=== PATIENT | female | born 1960 | race Caucasian/White ===

== ENCOUNTER 2019-09-13 09:32 | Emergency (ER) | payer OTHER ==
[2019-09-13] MEDS ORDERED: Metoclopramide 10 MG/2 ML SDV IVPUSH ONE (10:04)
[2019-09-13 11:02] LABS: BLOOD UREA NITROGEN,BUN 24 mg/dL (7.0-18.0); CARBON DIOXIDE,CO2 24.8 mmol/L (21.0-32.0); CHLORIDE,CL 101 mmol/L (98-107); GLUCOSE RANDOM 187 mg/dL (74-106); POTASSIUM,K 5.3 mmol/L (3.5-5.1); SODIUM,NA 138 mmol/L (136-145)
--- NOTE | 2019-09-13 11:35 | EDM.PDOC ---
[facility] GENERAL MEDICAL PROBLEM - General Chief Complaint: Diabetic Complaint Stated Complaint: DIZZY,BLOOD SUGAR Time Seen by Provider: 09/13/19 11:34 Source of Information: Reports: Patient History Limitations: Reports: No Limitations - History of Present Illness INITIAL COMMENTS - FREE TEXT/NARRATIVE: Patient is a 59-year-old female with a past medical history of diabetes presenting with a chief complaint of feeling dizzy. Patient states the symptoms started last night she did not have any lightheadedness or passed out. Patient states these symptoms persist today and she feels like her whole body is like a wet noodle. Patient denies any focal weakness, chest pain, shortness of breath, nausea, vomiting. Patient has no recent illnesses. Patient states her sugar was abnormally low last night but seems to be improved today. Patient has no headaches that are associated with these. Certain body positions do not improve the symptoms. Patient does not take any medications for the symptoms. In addition to that documented in the HPI above, the additional ROS was obtained : Constitutional: Denies fevers or chills Eyes: Denies vision changes ENMT: Denies sore throat CV: Denies chest pain Resp: Denies SOB GI: Denies vomiting or diarrhea : Denies painful urination MSK: Denies recent trauma Skin: Denies new rashes Neuro: Denies new numbness or tingling or weakness Endocrine: Denies unexpected weight loss Heme: Denies bleeding disorders I have reviewed the triage vital signs Const: Well nourished, well developed, appears stated age Eyes: PERRL, no conjunctival injection HENT: NCAT, Neck supple without meningismus CV: RRR, Warm, well-perfused extremities RESP: CTAB, Unlabored respiratory effort GI: soft, non-tender, non-distended, no masses MSK: No gross deformities appreciated Skin: Warm, dry. No rashes Neuro: Alert, human resources supervisor II-XII grossly intact. Sensation and motor function of extremities grossly intact. Walks with normal gait Psych: Appropriate mood and affect Assessment and plan: Patient 59-year-old female presenting with a chief complaint of feeling dizzy. Patient has nondescript symptoms with no evidence of acute coronary syndrome, pulmonary embolism, acute stroke. Patient's labs were within normal limits although her BUN was slightly elevated. Patient symptoms improved after administration of Reglan. Although the etiology of her dizziness is unclear, I do not believe is related to acute life-threatening illness and that she can be discharged home with . Patient given strict return precautions. All questions addressed and answered. Patient agrees with plan. Headache Pain Score (Numeric/FACES): 8 - Related Data Allergies Allergy/AdvReac Type Severity Reaction Status Date / Time iodine Allergy Anaphylactic Verified 09/13/19 09:51 Shock shellfish derived Allergy Anaphylactic Verified 09/13/19 09:51 Shock Home Meds: Home Meds Lisinopril [Zestril] 40 mg PO DAILY 09/13/19 [History] Omeprazole 40 mg PO DAILY 09/13/19 [History] atorvaSTATin [Lipitor] 10 mg PO DAILY 09/13/19 [History] glipiZIDE [Glucotrol] 5 mg PO BID 09/13/19 [History] metFORMIN [Glucophage XR] 1,000 mg PO BID 09/13/19 [History] Past Medical History Endocrine/Metabolic History: Reports: Diabetes, Type II - Infectious Disease History Infectious Disease History: Reports: Chicken Pox, Mumps - Past Surgical History GI Surgical History: Reports: Appendectomy Female Surgical History: Reports: Tubal Ligation Social & Family History - Family History Family Medical History: Noncontributory - Tobacco Use Smoking Status *Q: Former Smoker Used Tobacco, but Quit: Yes Month/Year Tobacco Last Used: 2014 - Caffeine Use Caffeine Use: Reports: Coffee - Recreational Drug Use Recreational Drug Use: No ED ROS GENERAL - Review of Systems Review Of Systems: See Below ED EXAM GENERAL NO PERIP PULSE - Physical Exam Exam: See Below Course - Vital Signs Last Recorded V/S: Last Vital Signs Temp 36.4 C 09/13/19 09:53 Pulse 90 09/13/19 11:45 Resp 18 09/13/19 11:45 BP 172/107 H 09/13/19 09:53 Pulse Ox 97 09/13/19 11:45 - Orders/Labs/Meds Orders: Active Orders 24 hr Category Date Time Status EKG Documentation Completion [RC] STAT Care 09/13/19 10:04 Active Labs: Laboratory Tests 09/13/19 09/13/19 09/13/19 Range/Units 09:47 10:18 10:18 WBC 10.15 (4.0-11.0) K/uL RBC 4.28 L (4.30-5.90) M/uL Hgb 12.8 (12.0-16.0) g/dL Hct 38.7 (36.0-46.0) % MCV 90.4 (80.0-98.0) fL MCH 29.9 (27.0-32.0) pg MCHC 33.1 (31.0-37.0) g/dL RDW Std Deviation 45.9 (28.0-62.0) fl RDW Coeff of Vikash 14 (11.0-15.0) % Plt Count 255 (150-400) K/uL MPV 11.80 (7.40-12.00) fL Neut % (Auto) 69.6 (48.0-80.0) % Lymph % (Auto) 23.1 (16.0-40.0) % [place] % (Auto) 5.2 (0.0-15.0) % Eos % (Auto) 1.7 (0.0-7.0) % Baso % (Auto) 0.4 (0.0-1.5) % Neut # (Auto) 7.1 H (1.4-5.7) K/uL Lymph # (Auto) 2.3 (0.6-2.4) K/uL [place] # (Auto) 0.5 (0.0-0.8) K/uL Eos # (Auto) 0.2 (0.0-0.7) K/uL Baso # (Auto) 0.0 (0.0-0.1) K/uL Nucleated RBC % 0.0 /100WBC Nucleated RBCs # 0 K/uL Sodium 138 (136-145) mmol/L Potassium 5.3 H (3.5-5.1) mmol/L Chloride 101 (98-107) mmol/L Carbon Dioxide 24.8 (21.0-32.0) mmol/L BUN 24 H (7.0-18.0) mg/dL Creatinine 0.9 (0.6-1.0) mg/dL Est Cr Clr Drug Dosing 49.53 mL/min Estimated GFR (MDRD) > 60.0 ml/min Glucose 187 H (74-106) mg/dL POC Glucose 190 H (60-110) mg/dL Calcium 10.9 H (8.5-10.1) mg/dL Total Bilirubin 0.3 (0.2-1.0) mg/dL AST 49 H (15-37) IU/L ALT 77 H (14-63) IU/L Alkaline Phosphatase 162 H (46-116) U/L Troponin I < 0.050 (0.000-0.056) ng/mL Total Protein 8.3 H (6.4-8.2) g/dL Albumin 4.3 (3.4-5.0) g/dL Globulin 4.0 (2.6-4.0) g/dL Albumin/Globulin Ratio 1.1 (0.9-1.6) Meds: Medications Discontinued Medications Generic Name Dose Route Start Last Admin Trade Name Freq PRN Reason Stop Dose Admin Metoclopramide HCl 10 mg 09/13/19 10:04 09/13/19 10:19 Reglan IVPUSH 09/13/19 10:05 10 mg ONETIME ONE Administration Departure - Departure Time of Disposition: 11:34 Disposition: Home, Self-Care 01 Clinical Impression: Diabetes - Discharge Information Instructions: Type 2 Diabetes Mellitus, Self Care, Adult Referrals: PCP,None [Primary Care Provider] - Forms: ED Department Discharge Additional Instructions: The following information is given to patients seen in the emergency department who are being discharged to home. This information is to outline your options for follow-up care. We provide all patients seen in our emergency department with a follow-up referral. The need for follow-up, as well as the timing and circumstances, are variable depending upon the specifics of your emergency department visit. If you don't have a primary care physician on staff, we will provide you with a referral. We always advise you to contact your personal physician following an emergency department visit to inform them of the circumstance of the visit and for follow-up with them and/or the need for any referrals to a consulting specialist. The emergency department will also refer you to a specialist when appropriate. This referral assures that you have the opportunity for follow-up care with a specialist. All of these measure are taken in an effort to provide you with optimal care, which includes your follow-up. Under all circumstances we always encourage you to contact your private physician who remains a resource for coordinating your care. When calling for follow-up care, please make the office aware that this follow-up is from your recent emergency room visit. If for any reason you are refused follow-up, please contact the [facility] Emergency Department at and asked to speak to the emergency department charge nurse. Sepsis Event Note - Evaluation Sepsis Screening Result: No Definite Risk - Focused Exam Vital Signs: Vital Signs Temp Pulse Resp BP Pulse Ox 09/13/19 11:45 90 18 97 09/13/19 09:53 36.4 C 91 17 172/107 H 95 Date Exam was Performed: 09/13/19 Time Exam was Performed: 17:30 - My Orders Last 24 Hours: My Active Orders 09/13/19 10:04 EKG Documentation Completion [RC] STAT - Assessment/Plan Last 24 Hours: My Active Orders 09/13/19 10:04 EKG Documentation Completion [RC] STAT
== END 2019-09-13 11:50 | disposition home or self-care (01) ==
LOC: MW.ED 09:32
DX: E11.9 Type 2 diabetes mellitus without complications (principal); Z87.891 Personal history of nicotine dependence; Z91.013 Allergy to seafood; Z91.048 Other nonmedicinal substance allergy status; Z79.899 Other long term (current) drug therapy; Z79.84 Long term (current) use of oral hypoglycemic drugs
CPT/HCPCS: 36415; 80053; 82962; 84484; 85025; 93005; 96374; 99284; J2765

== ENCOUNTER 2023-01-23 14:35 | Emergency (ER) | payer OTHER ==
[2023-01-23] MEDS ORDERED: Sodium Chloride 0.9% 2.5 ML Syringe FLUSH PRN (14:57)
[2023-01-23] MEDS ORDERED: Sodium Chloride 0.9% 10 ML Syringe FLUSH PRN (14:57)
[2023-01-23] MEDS ORDERED: Sodium Chloride 0.9% 20 ML SDV IV PRN (14:57)
[2023-01-23 15:17] LABS: BASOPHILS PERCENT AUTO 0.4 % (0.0-1.5); EOSINOPHILS ABSOLUTE AUTO 0.1 K/uL (0.0-0.7); EOSINOPHILS PERCENT AUTO 1.5 % (0.0-7.0); HEMATOCRIT 34.5 % (36.0-46.0); HEMOGLOBIN 11.1 g/dL (12.0-16.0); LYMPHOCYTES ABSOLUTE AUTO 1.8 K/uL (0.6-2.4); LYMPHOCYTES PERCENT AUTO 21.7 % (16.0-40.0); MEAN CORPUSCULAR HEMOGLOBIN 29.9 pg (27.0-32.0); MEAN CORPUSCULAR HGB CONC 32.2 g/dL (31.0-37.0); MONOCYTES ABSOLUTE AUTO 0.7 K/uL (0.0-0.8); MONOCYTES PERCENT AUTO 8.8 % (0.0-15.0); NEUTROPHILS ABSOLUTE AUTO 5.6 K/uL (1.4-5.7); NEUTROPHILS PERCENT AUTO 67.6 % (48.0-80.0); NRBC ABSOLUTE 0 K/uL; PLATELET COUNT,PLT 247 K/uL (150-400); RED BLOOD CELL COUNT 3.71 M/uL (4.30-5.90); WHITE BLOOD CELL COUNT,WBC 8.22 K/uL (4.0-11.0)
[2023-01-23 15:52] LABS: PTT,PARTIAL THROMBOPLSTIN TIME 26.1 SEC (23.9-30.7)
[2023-01-23 16:05] LABS: A/G RATIO 1.1 (0.9-1.6); ALANINE AMINOTRANSFERASE,ALT 101 IU/L (14-63); ALBUMIN 3.8 g/dL (3.4-5.0); ALKALINE PHOSPHATASE 132 U/L (46-116); ASPARTATE AMNIOTRANSFERASE,AST 57 IU/L (15-37); BILIRUBIN TOTAL 0.3 mg/dL (0.2-1.0); BLOOD UREA NITROGEN,BUN 16 mg/dL (7.0-18.0); CALCIUM 9.4 mg/dL (8.5-10.1); CHLORIDE,CL 104 mmol/L (98-107); CREATININE 1.3 mg/dL (0.6-1.0); EST CRCL DRUG DOSING (CG) 32.99 mL/min; GLUCOSE RANDOM 115 mg/dL (74-106); POTASSIUM,K 5.4 mmol/L (3.5-5.1); PROTEIN TOTAL,TP 7.3 g/dL (6.4-8.2); SODIUM,NA 138 mmol/L (136-145)
[2023-01-23 16:07] LABS: ESTIMATED GFR 46 mL/min (>60)
[2023-01-23 16:09] LABS: ETHANOL BLOOD MEDICAL < 3.0 mg/dL
[2023-01-23] MEDS ORDERED: Iopamidol 755 MG/ML 500 ML Multipack Bottle IVPUSH STA (17:41)
[2023-01-23] MEDS ORDERED: Aspirin 81 MG Tab.Chew PO ONE (18:41)
[2023-01-23] MEDS ORDERED: Clopidogrel 75 MG Tab PO ONE (18:42)
[2023-01-23] MEDS ORDERED: Sodium Chloride 0.9% 1,000 ML IV ONE (18:43)
== END 2023-01-23 19:57 ==
LOC: MW.ED 14:35
DX: I63.9 Cerebral infarction, unspecified (principal); I21.4 Non-ST elevation (NSTEMI) myocardial infarction; R77.8 Other specified abnormalities of plasma proteins; E78.00 Pure hypercholesterolemia, unspecified; I10 Essential (primary) hypertension; E11.9 Type 2 diabetes mellitus without complications; Z87.891 Personal history of nicotine dependence; Z88.8 Allergy status to other drugs, medicaments and biological substances; Z91.013 Allergy to seafood; Z79.84 Long term (current) use of oral hypoglycemic drugs; Z79.899 Other long term (current) drug therapy
CPT/HCPCS: 36415; 70450; 70496; 70498; 71045; 80053; 80307; 84484; 85025; 85610; 85730; 93005; 96360; 99285; A9270; J3490; J7030; Q9967; 93010

== ENCOUNTER 2023-01-30 18:13 | Emergency (ER) | payer OTHER ==
[2023-01-30] MEDS ORDERED: Sodium Chloride 0.9% 2.5 ML Syringe FLUSH PRN (18:36)
[2023-01-30] MEDS ORDERED: Sodium Chloride 0.9% 10 ML Syringe FLUSH PRN (18:36)
[2023-01-30 18:54] LABS: BASOPHILS PERCENT AUTO 0.2 % (0.0-1.5); HEMATOCRIT 29.7 % (36.0-46.0); HEMOGLOBIN 9.8 g/dL (12.0-16.0); LYMPHOCYTES PERCENT AUTO 7.5 % (16.0-40.0); MEAN CORPUSCULAR HEMOGLOBIN 29.6 pg (27.0-32.0); MEAN CORPUSCULAR VOLUME 89.7 fL (80.0-98.0); MONOCYTES ABSOLUTE AUTO 0.8 K/uL (0.0-0.8); MONOCYTES PERCENT AUTO 6.3 % (0.0-15.0); NEUTROPHILS ABSOLUTE AUTO 11.3 K/uL (1.4-5.7); NRBC ABSOLUTE 0 K/uL; PLATELET COUNT,PLT 285 K/uL (150-400); RED BLOOD CELL COUNT 3.31 M/uL (4.30-5.90); WHITE BLOOD CELL COUNT,WBC 13.15 K/uL (4.0-11.0)
[2023-01-30] MEDS ORDERED: Acetaminophen 500 MG Tab PO ONE (19:00)
[2023-01-30] MEDS ORDERED: Ondansetron 4 MG/2 ML SDV IVPUSH ONE (19:07)
[2023-01-30] MEDS ORDERED: Piperacillin/Tazobactam 4.5 GM in Sodium Chloride 0.9% 100 ML IV ONE (19:09)
[2023-01-30 19:10] LABS: INR 1.02 (0.86-1.11); PTT,PARTIAL THROMBOPLSTIN TIME 25.9 SEC (23.9-30.7)
[2023-01-30] MEDS ORDERED: DESMOPRESSIN IV ONE (19:10)
[2023-01-30] MEDS ORDERED: SODIUM CHLORIDE 0.9% IV ONE (19:10)
[2023-01-30] MEDS ORDERED: niCARdipine/Normal Saline 20 MG/200 ML BAG IV SCH (19:15)
[2023-01-30 19:16] LABS: A/G RATIO 1.1 (0.9-1.6); ALBUMIN 3.8 g/dL (3.4-5.0); BILIRUBIN TOTAL 0.5 mg/dL (0.2-1.0); CALCIUM 9.3 mg/dL (8.5-10.1); CARBON DIOXIDE,CO2 22.6 mmol/L (21.0-32.0); CREATININE 0.9 mg/dL (0.6-1.0); EST CRCL DRUG DOSING (CG) 47.65 mL/min; MAGNESIUM 1.1 mg/dL (1.8-2.4); POTASSIUM,K 4.3 mmol/L (3.5-5.1); PROTEIN TOTAL,TP 7.4 g/dL (6.4-8.2)
[2023-01-30 19:20] LABS: LACTIC ACID 1.4 mmol/L (0.4-2.0)
[2023-01-30] MEDS ORDERED: niCARdipine/Normal Saline 200 ML ONE (19:25)
[2023-01-30] MEDS ORDERED: Magnesium Sulfate/Water 2 GM in Premix Bag 1 BAG IV ONE (19:33)
[2023-01-30] MEDS ORDERED: fentaNYL 50 MCG/ML SDV IVPUSH ONE (20:28)
== END 2023-01-30 23:30 ==
LOC: MW.ED 18:13
DX: I60.9 Nontraumatic subarachnoid hemorrhage, unspecified (principal); I10 Essential (primary) hypertension; E11.9 Type 2 diabetes mellitus without complications; E78.00 Pure hypercholesterolemia, unspecified; Z91.041 Radiographic dye allergy status; Z91.013 Allergy to seafood; Z79.899 Other long term (current) drug therapy; Z79.84 Long term (current) use of oral hypoglycemic drugs; Z20.822 Contact with and (suspected) exposure to COVID-19
CPT/HCPCS: 36415; 70450; 71045; 80053; 83605; 83690; 83735; 84484; 85025; 85610; 85730; 86850; 86900; 86901; 87040; 87635; 93005; 96365; 96368; 96375; 99285; A9270; J2405; J2543; J2597; J3010; J3475; J3490; U0002

== ENCOUNTER 2023-02-17 12:51 | Emergency (ER) | payer OTHER ==
[2023-02-17] MEDS ORDERED: Ondansetron 4 MG/2 ML SDV IVPUSH ONE (13:18)
[2023-02-17 13:32] LABS: BASOPHILS PERCENT AUTO 0.2 % (0.0-1.5); EOSINOPHILS ABSOLUTE AUTO 0.1 K/uL (0.0-0.7); EOSINOPHILS PERCENT AUTO 0.7 % (0.0-7.0); HEMATOCRIT 33.3 % (36.0-46.0); HEMOGLOBIN 10.7 g/dL (12.0-16.0); LYMPHOCYTES ABSOLUTE AUTO 1.5 K/uL (0.6-2.4); LYMPHOCYTES PERCENT AUTO 10.7 % (16.0-40.0); MEAN CORPUSCULAR HEMOGLOBIN 30.7 pg (27.0-32.0); MEAN CORPUSCULAR HGB CONC 32.1 g/dL (31.0-37.0); MEAN CORPUSCULAR VOLUME 95.4 fL (80.0-98.0); MONOCYTES ABSOLUTE AUTO 0.8 K/uL (0.0-0.8); NEUTROPHILS ABSOLUTE AUTO 11.2 K/uL (1.4-5.7); NEUTROPHILS PERCENT AUTO 82.4 % (48.0-80.0); NRBC ABSOLUTE 0 K/uL; PLATELET COUNT,PLT 291 K/uL (150-400); RED BLOOD CELL COUNT 3.49 M/uL (4.30-5.90); WHITE BLOOD CELL COUNT,WBC 13.61 K/uL (4.0-11.0)
[2023-02-17 13:55] LABS: A/G RATIO 0.9 (0.9-1.6); ALBUMIN 3.5 g/dL (3.4-5.0); BILIRUBIN TOTAL 0.4 mg/dL (0.2-1.0); CALCIUM 10.3 mg/dL (8.5-10.1); CARBON DIOXIDE,CO2 24.3 mmol/L (21.0-32.0); CREATININE 0.9 mg/dL (0.6-1.0); EST CRCL DRUG DOSING (CG) 47.65 mL/min; MAGNESIUM 1.3 mg/dL (1.8-2.4); POTASSIUM,K 4.7 mmol/L (3.5-5.1); PROTEIN TOTAL,TP 7.6 g/dL (6.4-8.2)
[2023-02-17] MEDS ORDERED: Magnesium Sulfate/Water 2 GM in Premix Bag 1 BAG IV ONE (14:32)
[2023-02-17] MEDS ORDERED: Iopamidol 755 MG/ML 500 ML Multipack Bottle IVPUSH ONE (14:43)
== END 2023-02-17 15:42 | disposition home or self-care (01) ==
LOC: MW.ED 12:51
DX: R51.9 Headache, unspecified (principal); E78.00 Pure hypercholesterolemia, unspecified; E11.9 Type 2 diabetes mellitus without complications; I10 Essential (primary) hypertension; Z91.041 Radiographic dye allergy status; Z79.899 Other long term (current) drug therapy; Z79.84 Long term (current) use of oral hypoglycemic drugs
CPT/HCPCS: 36415; 70450; 70496; 70498; 80053; 83735; 85025; 96365; 96375; 99284; J2405; J3475; Q9967

== ENCOUNTER 2024-07-13 15:18 | Emergency (ER) | payer OTHER ==
[2024-07-13] MEDS ORDERED: Sodium Chloride 0.9% 10 ML Syringe FLUSH PRN (15:21)
[2024-07-13] MEDS ORDERED: Sodium Chloride 0.9% 2.5 ML Syringe FLUSH PRN (15:21)
[2024-07-13 15:38] LABS: BASOPHILS ABSOLUTE AUTO 0.05 K/uL (0.00-0.20); BASOPHILS PERCENT AUTO 0.7 % (0.0-1.0); EOSINOPHILS ABSOLUTE AUTO 0.07 K/uL (0.00-0.45); HEMATOCRIT 24.6 % (37.0-47.0); HEMOGLOBIN 7.9 g/dL (12.0-16.0); IMMATURE GRAN ABSOLUTE AUTO 0.02 K/uL (0.00-0.05); IMMATURE GRAN PERCENT AUTO 0.3 % (0.0-0.4); LYMPHOCYTES ABSOLUTE AUTO 1.74 K/uL (1.00-4.80); LYMPHOCYTES PERCENT AUTO 23.9 % (24.0-44.0); MEAN CORPUSCULAR HEMOGLOBIN 28.3 pg (28.0-32.0); MEAN CORPUSCULAR HGB CONC 32.1 g/dL (32.0-36.0); MEAN CORPUSCULAR VOLUME 88.2 fL (83.0-99.0); MEAN PLATELET VOLUME 11.4 fL (9.4-12.3); MONOCYTES ABSOLUTE AUTO 0.59 K/uL (0.00-0.80); MONOCYTES PERCENT AUTO 8.1 % (0.0-8.0); PLATELET COUNT,PLT 234 K/uL (150-400); RED BLOOD CELL COUNT 2.79 M/uL (4.10-5.30); WHITE BLOOD CELL COUNT,WBC 7.27 K/uL (3.9-11.3)
[2024-07-13 15:47] LABS: INR 1.04 (0.86-1.11)
[2024-07-13] MEDS: Aspirin 81 MG Tab.Chew PO STA (16:03)
[2024-07-13 16:06] LABS: A/G RATIO 1.3 (0.9-1.6); ALBUMIN 3.9 g/dL (3.4-5.0); BILIRUBIN TOTAL 0.2 mg/dL (0.2-1.0); CALCIUM 9.5 mg/dL (8.5-10.1); CARBON DIOXIDE,CO2 24.4 mmol/L (21.0-32.0); CREATININE 1.4 mg/dL (0.6-1.0); EST CRCL DRUG DOSING (CG) 29.83 mL/min; POTASSIUM,K 4.6 mmol/L (3.5-5.1)
[2024-07-13] MEDS: Acetaminophen 500 MG Tab PO STA (20:44)
== END 2024-07-14 14:25 | disposition left against medical advice (07) ==
LOC: MW.ED 15:18
DX: I21.4 Non-ST elevation (NSTEMI) myocardial infarction (principal); D64.9 Anemia, unspecified; N17.9 Acute kidney failure, unspecified; R79.0 Abnormal level of blood mineral; I10 Essential (primary) hypertension; I25.10 Atherosclerotic heart disease of native coronary artery without angina pectoris; E78.00 Pure hypercholesterolemia, unspecified; E11.9 Type 2 diabetes mellitus without complications; K21.9 Gastro-esophageal reflux disease without esophagitis; Z90.49 Acquired absence of other specified parts of digestive tract; Z87.891 Personal history of nicotine dependence; Z79.899 Other long term (current) drug therapy; Z79.84 Long term (current) use of oral hypoglycemic drugs; Z91.013 Allergy to seafood; Z91.048 Other nonmedicinal substance allergy status; Z75.8 Other problems related to medical facilities and other health care
CPT/HCPCS: 36415; 71046; 80053; 83690; 83880; 84484; 85025; 85610; 93005; 99285; A9270; 93010